=== PATIENT | female | born 2000 | race Caucasian/White ===

== ENCOUNTER 2022-04-21 10:49 | Emergency (ER) | payer OTHER, SELFPAY ==
--- NOTE | ~2022-04-21 | XR_ITS ---
Left Shoulder Technique: AP and scapular Y views were obtained. Clinical History: Pain Findings: No fracture or dislocation is seen. Osseous alignment is anatomic. The glenohumeral and acr omioclavicular joint spaces are preserved. Soft tissues are unremarkable. Impression: Unremarkable left shoulder radiographs. Reviewed, dictated and finalized at [facility]. Impression: Unremarkable left shoulder radiographs.
[2022-04-21 10:52] VITALS: BP 135/82; PULSE 84; RESP 16; TEMP 37.1; O2SAT 99
--- NOTE | 2022-04-21 12:33 | ED.UPPEXIN ---
HPI - Extremity Injury (Upper) General Chief Complaint: Extremity Injury, Upper Stated Complaint: left shoulder pain Time Seen by Provider: 04/21/22 11:08 Source: patient Mode of arrival: ambulatory Limitations: no limitations History of Present Illness HPI narrative: This is a 22-year-old female that presents to the emergency department for left shoulder pain since yesterday. Reports she was doing her hair and felt a pop in her shoulder. Reports she attempted to play golf afterwards and her pain worsened. She was seen by her chiropractor who prompted her to be seen in the ED for a possible dislocation. She has not taken anything today for pain. Reports pain with active range of motion above 90 degrees in the left shoulder. Reports she was having some tingling in her hand yesterday. Denies current numbness or weakness. Related Data Home Medications Medication Instructions Recorded Confirmed escitalopram oxalate 20 mg tablet 20 mg PO DAILY 04/21/22 (Lexapro) Allergies Allergy/AdvReac Type Severity Reaction Status Date / Time No Known Allergies Allergy Mild Verified 04/21/22 10:55 Review of Systems Review of Systems: CONSTITUTIONAL: Denies fever MUSCULOSKELETAL: Reports joint pain, and myalgia. NEUROLOGIC: Denies numbness, or weakness. All systems reviewed & are unremarkable except as noted in HPI and below PMFSH Past Medical History Medical History (Updated 04/21/22 @ 12:41 by Gillian Nieves PA-C) No active medical problems Social History Social History (Updated 04/21/22 @ 12:35 by Gillian Nieves PA-C) Smoking status: Never smoker Substance use: never Exam Narrative: GENERAL: Well-appearing, well-nourished, and in no acute distress. HEAD: Normocephalic, atraumatic. EYES: EOMI. CHEST: Clear to auscultation. No respiratory distress. No wheezes rales or rhonchi HEART: Regular rate and rhythm. No murmur heard. Normal peripheral pulses. EXTREMITIES: Normal range of motion. No edema or obvious deformity. Strength equal in bilateral upper extremities (5/5). Pain with Hill test. Normal radial pulse. Normal sensation SKIN: Warm, dry, no rash. NEURO: No focal deficits. Alert and oriented x3. PSYCH: Normal mood and affect Course Course Emergency Course: Patient and family updated on work-up and agree with plan of care Vital Signs Vital signs: Vital Signs Temperature 98.8 F 04/21/22 10:52 Pulse Rate 84 04/21/22 10:52 Respiratory Rate 16 04/21/22 10:52 Blood Pressure 135/82 04/21/22 10:52 Pulse Oximetry 99 04/21/22 10:52 Oxygen Delivery Room Air 04/21/22 10:52 Temperature 98.8 F 04/21/22 10:52 Pulse Rate 84 04/21/22 10:52 Respiratory Rate 16 04/21/22 10:52 Blood Pressure 135/82 04/21/22 10:52 Pulse Oximetry 99 04/21/22 10:52 Oxygen Delivery Room Air 04/21/22 10:52 MDM - Extremity Injury (Upper) MDM Narrative Medical decision making narrative: Patient presents emergency department for left shoulder pain ongoing since yesterday. No known injury or trauma. Reports it started after doing her hair she felt a pop in the shoulder. After playing golf yesterday the pain worsened. Was evaluated by her chiropractor and prompted to be seen in the ED to rule out a dislocation. Patient is neurovascularly intact. Left shoulder x-ray without acute abnormalities. Patient placed in a sling for comfort. Patient and family updated on work-up and agree with plan of care. Will be given follow-up with orthopedics for possible rotator cuff pathology. She was given warnings to return to the ER Differential Diagnosis Differential diagnosis: Likely dislocation of shoulder and other (shoulder sprain, rotator cuff tear, rotator cuff tendonopathy) Imaging Data Radiologist's impression: ITS Impressions Shoulder X-Ray 04/21/22 11:28 Impression: Unremarkable left shoulder radiographs. Critical Care Time Critical Care Time Critical Car
== END 2022-04-21 13:01 | disposition home or self-care (01) ==
PROVIDERS: Emergency Provider Physician Assistant
DX: M67.912 Unspecified disorder of synovium and tendon, left shoulder (principal)
CPT/HCPCS: 73030; 99283; A4565